=== PATIENT | female | born 1995 | race Asian ===

== ENCOUNTER 2021-06-18 11:12 | Inpatient (IN) ==
[2021-06-18] MEDS ORDERED: Lactated Ringers 1000 ml BAG 1,000 ML IV ONE ×2 (11:50→14:37)
[2021-06-18] MEDS ORDERED: Buffered Lidocaine 1% SYRIN 1 ml INTRADERM ONE (11:50)
[2021-06-18] MEDS ORDERED: Penicillin G Potassium IV 5,000,000 UNITS in NS 0.9% 100 ml BAG 100 ML IVPB ONE (12:00)
[2021-06-18] MEDS ORDERED: Lactated Ringers 1000 ml BAG 1,000 ML IV SCH ×2 (12:00→15:00)
[2021-06-18] MEDS ORDERED: OBEPIDURAL 250 ML EPIDURAL ONE (12:56)
[2021-06-18 13:57] LABS: Hematocrit 40 % (35-47); Hemoglobin 13.5 g/dL (12.0-16.0); Mean Corpuscular HGB Conc 34 g/dL (31-36); Mean Corpuscular Hemoglobin 29 pg (27-31); Mean Corpuscular Volume 85 fL (80-97); Mean Platelet Volume 8.9 fL (7.4-10.4); Platelet Count 206 10^3/uL (150-450); Red Blood Count 4.72 10^6 /uL (3.70-4.87); Red Cell Distribution Width 14 % (10-15); White Blood Count 22.3 10^3/uL (3.5-10.8)
[2021-06-18 14:27] LABS: Urine Benzodiazepine Screen None Detected (None Detect); Urine Cannabinoids Screen None Detected (None Detect); Urine Opiates Screen None Detected (None Detect)
[2021-06-18] MEDS ORDERED: Phenylephrine 40 mcg/mL 10mL (400mcg) SYRINGE IV PUSH PRN (14:37)
[2021-06-18] MEDS ORDERED: EPHEDrine (Pressors) 50 MG/ML VIAL IV PUSH PRN (14:37)
[2021-06-18] MEDS ORDERED: Lactated Ringers 1000 ml BAG 500 ML IV PRN (14:37)
[2021-06-18] MEDS ORDERED: Sodium Citrate/Citric Acid LIQ 15 ML UDC PO PRN (14:37)
[2021-06-18] MEDS ORDERED: OBEPIDURAL 250 ML EPIDURAL SCH (15:00)
[2021-06-18 15:05] LABS: ABS Lymphocytes 0.9 10^3/ul (1.0-4.8); ABS Neutrophils 20.4 10^3/ul (1.5-7.7); Lymphocyte % 4.1 %
[2021-06-18 15:50] LABS: Urine Appearance Clear; Urine Bilirubin Negative (Negative); Urine Blood Negative (Negative); Urine Color Yellow; Urine Glucose Negative (Negative); Urine Ketones 2+ (Negative); Urine Nitrite Negative (Negative); Urine Protein 1+(30 mg/dL) (Negative); Urine Specific Gravity 1.021 (1.002-1.030); Urine Urobilinogen Negative (Negative)
[2021-06-18 15:52] LABS: Urine Bacteria Absent (Absent); Urine Red Blood Cell Trace(0-2/hpf) (Absent); Urine Squamous Epithelial Cell Present (Absent); Urine White Blood Cell Trace(0-5/hpf) (Absent)
[2021-06-18] MEDS ORDERED: Penicillin G Potassium IV 3,000,000 UNITS in NS 0.9% 100 ml BAG 100 ML IVPB SCH (17:00)
[2021-06-18] MEDS ORDERED: Oxytocin in LR 20 UNITS/1,000 ML BAG IVPB ONE (18:15)
[2021-06-18] MEDS ORDERED: Dibucaine 1% OINT 28.35 GM TUBE PR PRN (18:26)
[2021-06-18] MEDS ORDERED: Witch Hazel PAD JAR TOPICAL PRN (18:26)
[2021-06-18] MEDS ORDERED: Glycerin ADULT 2.4 gm SUPP PR PRN (18:26)
[2021-06-18] MEDS ORDERED: Oxytocin in LR 20 UNITS/1,000 ML BAG IVPB SCH (19:00)
[2021-06-19 08:58] LABS: ABS Basophils 0.1 10^3/ul (0-0.2); ABS Lymphocytes 2.1 10^3/ul (1.0-4.8); ABS Monocytes 1.4 10^3/ul (0-0.8); ABS Neutrophils 17.3 10^3/ul (1.5-7.7); Eosinophil % 0.2 %; Hematocrit 33 % (35-47); Hemoglobin 11.2 g/dL (12.0-16.0); Lymphocyte % 10.3 %; Mean Corpuscular HGB Conc 34 g/dL (31-36); Mean Corpuscular Hemoglobin 29 pg (27-31); Mean Corpuscular Volume 85 fL (80-97); Mean Platelet Volume 8.5 fL (7.4-10.4); Platelet Count 196 10^3/uL (150-450); Red Blood Count 3.85 10^6 /uL (3.70-4.87); Red Cell Distribution Width 14 % (10-15); White Blood Count 20.9 10^3/uL (3.5-10.8)
[2021-06-20] MEDS ORDERED: Ammonia Inhalant 1 EA AMP ONE (06:30)
[2021-06-20 07:50] VITALS: BP 107/67
== END 2021-06-20 20:25 | disposition home or self-care (01) | DRG 560 ==
LOC: MCHOBOUT 11:12 → MCHOB 11:51
PROVIDERS: ADMIT Midwife; ATTEND Midwife